=== PATIENT | female | born 1975 | race Caucasian/White ===

== ENCOUNTER 2024-07-15 04:13 | Emergency (ER) | payer OTHER, SELFPAY ==
[2024-07-15] VITALS (8 sets, daily range): BP systolic 97–134; BP diastolic 66–81; PULSE 62–107; RESP 20; TEMP 36.6; O2SAT 94–99; BMI 25.7
--- NOTE | 2024-07-15 04:48 | XRR_ITS ---
PROCEDURE INFORMATION: Exam: XR Chest Exam date and time: 07/15/2024 4:54 AM Age: 49 years old Clinical indication: Other: Syncope/vomiting; Patient HX: Syncope with vomiting. TECHNIQUE: Imaging protocol: Radiologic exam of the chest. Views: 1 view. COMPARISON: No relevant prior studies available. FINDINGS: Lungs: Unremarkable. No consolidation. Pleural spaces: Unremarkable. No pleural effusion. No pneumothorax. Heart/Mediastinum: Unremarkable. No cardiomegaly. Bones/joints: Unremarkable. XR/XR chest 1V portable [id number] IMPRESSION: No acute findings.
--- NOTE | 2024-07-15 05:08 | CTR_ITS ---
PROCEDURE INFORMATION: Exam: CT Head Without Contrast Exam date and time: 07/15/2024 5:24 AM Age: 49 years old Clinical indication: Pain; Syncope and collapse; Headache; Patient HX: Syncopal episode with SANCHEZ. ; Additional info: Syncope, headache TECHNIQUE: Imaging protocol: Computed tomography of the head without contrast. Radiation optimization: All CT scans at this facility use at least one of these dose optimization techniques: automated exposure control; mA and/or kV adjustment per patient size (includes targeted exams where dose is matched to clinical indication); or iterative reconstruction. COMPARISON: No relevant prior studies available. RADIATION DOSE METRICS: Total DLP (mGy-cm): 1017.18 FINDINGS: Brain: Normal. No hemorrhage. Unremarkable white matter. No mass effect. Cerebral ventricles: No ventriculomegaly. Paranasal sinuses: Visualized sinuses are unremarkable. No fluid levels. Mastoid air cells: Visualized mastoid air cells are well aerated. Bones: Unremarkable. No acute fracture. Soft tissues: Unremarkable. CT/CT head wo con* [id number] IMPRESSION: No acute intracranial abnormality.
--- NOTE | 2024-07-15 05:14 | ED_ITS ---
HPI - Nausea/Vomiting/Diarrhea 2 General: Chief complaint: Nausea/Vomiting/Diarrhea Stated complaint: n/v loc Time Seen by Provider: 07/15/24 04:53 History of Present Illness: 49-year-old female who had been nauseate d, sick at her stomach in bed. She got up to use the restroom, as she became more nauseated. She had a syncopal episode in the bathroom. states her eyes rolled back in her head. This happened twice. Each lasted about 30 seconds or so. She was stiff at 1 point. She was not overly confused afterward. She has recovered now. She was given nausea medication after beginning to vomit in the ambulance on the way here, and feels somewhat improved. Related Data Home Medications Medication Instructions Recorded Confirmed Tumeric Complex 1 cap PO DAILY 07/15/24 07/15/24 magnesium citrate 100 mg tablet 100 mg PO DAILY 07/15/24 07/15/24 [id number] fum 18 1 tab PO DAILY 07/15/24 07/15/24 mg-folic 600 mcg-vit K 80 mcg tablet (Multi For Her) Previous Rx's Medication Instructions Recorded ondansetron 4 mg disintegrating 4 mg PO Q6H PRN nausea and 07/15/24 tablet vomiting #14 tabs Physical Exam 2 Const: COMMON NORMALS: no acute distress GENERAL APPEARANCE: cooperative and ill appearing (Mildly); not frail appearing HENMT: COMMON NORMALS: normocephalic, atraumatic and Normal external nose present HEAD & SCALP: normocephalic and atraumatic FACE & SINUS: normal facial exam and face symmetric NOSE: Normal external nose present Eye: COMMON NORMALS: Equal, round and reactive pupils present and EOMs intact bilaterally PUPIL: Yes Equal, round and reactive pupils present Neck/C-Spine: GENERAL: Yes trachea midline Chest: CHEST: Yes Symmetrical chest wall rise Resp: COMMON NORMALS: normal respiratory effort, No retractions, No use of accessory muscles and clear to auscultation bilaterally AUSCULTATION: clear to auscultation bilaterally Cardio: COMMON NORMALS: regular rate and regular rhythm RATE: regular rate RHYTHM: regular rhythm GI: COMMON NORMALS: Normal to inspection, nondistended, normoactive bowel sounds present Extremity: COMMON NORMALS: no pedal edema Neuro: CAROLINE COMA SCALE: document GCS findings Caroline coma scale eye opening: Spontaneous Caroline coma scale verbal response: Orientated [place] coma scale motor response: Obey commands Caroline coma scale total score: 15 S ENSORY EXAM: Yes extremities (intact) Psych: COMMON NORMALS: speech normal SPEECH: Yes normal speech Skin: COMMON NORMALS: no rashes or lesions noted GENERAL SKIN EXAM: no rashes or lesions noted Course 2 Vital Signs: Vital signs: Vital Signs Temperature 97.8 F 07/15/24 04:28 Pulse Rate 62 07/15/24 13:25 Respiratory Rate 20 H 07/15/24 04:28 Blood Pressure 108/66 07/15/24 13:25 Pulse Oximetry 96 07/15/24 13:25 MDM - Nausea/Vomiting/Diarrhea Medical Decision Making Vitals been stable here. Hemoglobin is 13. White blood cell count is 11.8. Chest x-ray is negative. Head CT is negative. Lipase is normal. Liver enzymes are normal. Her belly is not overly tender. She will be allowed discharge. Likely vasovagal syncope from the nausea related to her stomach. She is to return for repeated episodes, or worsening symptoms otherwise. On notification of discharge, the patient began to get dizzy, and have nausea again. She is given medication for this with some improvement. Consideration was given to the possibility of posterior circulation stroke, given her dizziness. However, the patient's dizziness improved with medication, as that her nausea. She was able to walk in the ER without assistance, and felt as if she could go home. She was discharged at that point. She knows to return for any worsening symptoms. Lab Data 07/15/24 05:17 07/15/24 05:17 Radiology Impressions Chest X-Ray 07/15/24 04:48 IMPRESSION: No acute findings. Head CT 07/15/24 05:08 IMPRESSION: No acute intracranial abnormality. Laboratory Results WBC 11.80 10^3/uL (3.29-11.43) H 07/15/24 05:17 RBC 4.84 10^6/uL (3.85-5.65) 07/15/24 05:17 Hgb 13.70 g/dL (11.27-16.99) 07/15/24 05:17 Hct 42.2 % (36-47) 07/15/24 05:17 MCV 87.2 fl (85-98) 07/15/24 05:17 MCH 28.3 pg (27-33) 07/15/24 05:17 MCHC 32.5 g/dL (30-55) 07/15/24 05:17 RDW 13.0 % (12.1-15.1) 07/15/24 05:17 Plt Count 312 10^3/cmm (157-399) 07/15/24 05:17 MPV 9.9 fL (7.4-10.4) 07/15/24 05:17 Neut % (Auto) 88.7 % 07/15/24 05:17 Lymph % (Auto) 5.5 % 07/15/24 05:17 [place] % (Auto) 4.8 % 07/15/24 05:17 Eos % (Auto) 0.6 % 07/15/24 05:17 Baso % (Auto) 0.1 % 07/15/24 05:17 Neut # (Auto) 10.46 10^3/uL (1.8-7.7) H 07/15/24 05:17 Lymph # (Auto) 0.7 10^3/uL (0.8-4.8) L 07/15/24 05:17 [place] # (Auto) 0.6 10^3/uL (0.2-0.9) 07/15/24 05:17 Eos # (Auto) 0.1 10^3/uL (0.0-0.8) 07/15/24 05:17 Baso # (Auto) 0.0 10^3/uL (0.0-0.1) 07/15/24 05:17 Nucleated RBC % (auto) 0 % 07/15/24 05:17 Nucleated RBCs # 0.0 /100WBC 07/15/24 05:17 Sodium 140 mmol/L (136-145) 07/15/24 05:17 Potassium 4.4 mmol/L (3.5-5.1) 07/15/24 05:17 Chloride 105 mmol/L (98-107) 07/15/24 05:17 Carbon Dioxide 26 mmol/L (22-29) 07/15/24 05:17 Anion Gap 13.4 (5-19) 07/15/24 05:17 BUN 19 mg/dL (6-20) 07/15/24 05:17 Creatinine 0.8 mg/dL (0.5-0.9) 07/15/24 05:17 GFR Calculation 75.6 mL/min (90-130) L 07/15/24 05:17 Glucose 106 mg/dL (65-115) 07/15/24 05:17 Calculated Osmolality 293 mOsm/kg (285-295) 07/15/24 05:17 Calcium 8.2 mg/dL (8.5-10.5) L 07/15/24 05:17 Total Bilirubin 0.4 mg/dL (0.15-1.2) 07/15/24 05:17 AST 24 U/L (0-32) 07/15/24 05:17 ALT 30 U/L (0-33) 07/15/24 05:17 Alkaline Phosphatase 58 U/L (35-105) 07/15/24 05:17 Total Protein 6.5 g/dL (6.6-8.7) L 07/15/24 05:17 Albumin 4.1 g/dL (3.5-5.2) 07/15/24 05:17 Globulin 2.4 g/dL (1.3-4.6) 07/15/24 05:17 Lipase 24 U/L (13-60) 07/15/24 05:17 Urine Color Yellow (Yellow) 07/15/24 08:37 Urine Appearance Clear (CLEAR) 07/15/24 08:37 Urine pH >=9.0 (5-7) A 07/15/24 08:37 Ur Specific [place] 1.021 (1.005-1.030) 07/15/24 08:37 Urine Protein Trace (Negative) A 07/15/24 08:37 Urine Glucose (UA) Negative (Normal) 07/15/24 08:37 Urine Ketones Negative (Negative) 07/15/24 08:37 Urine Blood Negative (Negative) 07/15/24 08:37 Urine Nitrate Negative (Negative) 07/15/24 08:37 Urine Bilirubin Negative (Negative) 07/15/24 08:37 Urine Urobilinogen 1.0 mg/dL (Negative) 07/15/24 08:37 Ur Leukocyte Esterase Negative (Negative) 07/15/24 08:37 Urine RBC 6-10 /hpf (0-2) 07/15/24 08:37 Urine WBC 0-5 /hpf (0-5) 07/15/24 08:37 Ur Squamous Epith Cells 0-5 /hpf (0-5) 07/15/24 08:37 Amorphous Sediment Not Reportable 07/15/24 08:37 Urine Bacteria None seen /hpf (NONE) 07/15/24 08:37 Hyaline Casts 2.05 /lpf 07/15/24 08:37 All radiology interpretation(s) finalized by discharge Discharge Plan Discharge Patient Disposition: Home Clinical Impression: Vasovagal syncope Condition: Stable Prescriptions: New ondansetron 4 mg tablet,disintegrating 4 mg PO Q6H PRN (Reason: nausea and vomiting) Qty: 14 0RF No Action magnesium citrate 100 mg Tablet 100 mg PO DAILY Multi For Her 18 mg iron-600 mcg-80 mcg Tablet 1 tab PO DAILY Tumeric Complex 500 mg capsule 1 cap PO DAILY Discharge Orders: Discharge ED (Routine); Ordered 07/15/24 Ordered By: Abby Gutiérrez Patient Instructions: Syncope (ED), Opioid Safety, Pain Management, Vomiting - Adult Activity Restrictions/Additional Instructions: Follow a liquid diet for the next 24 hours. Take nausea medication every 4 hours while awake for the first 24 hours whether you feel nauseated or not, then as needed following that. Return for worsening nausea, continued vomiting despite treatment, repeated episodes of syncope or passing out, other concerning symptoms. See your doctor early this week. Call tomorrow for an appointment. Coding Level of Care Code ED [employer] Executive Assistant for Fred Weston
[2024-07-15 05:23] LABS: Basophils % 0.1 %; Eosinophils # 0.1 10^3/uL (0.0-0.8); Eosinophils % 0.6 %; Hematocrit 42.2 % (36-47); Lymphocytes # 0.7 10^3/uL (0.8-4.8); Lymphocytes % 5.5 %; Mean Corpuscular HGB Conc 32.5 g/dL (30-55); Mean Corpuscular Hemoglobin 28.3 pg (27-33); Mean Corpuscular Volume 87.2 fl (85-98); Mean Platelet Volume 9.9 fL (7.4-10.4); Monocytes # 0.6 10^3/uL (0.2-0.9); Monocytes % 4.8 %; Neutrophils # 10.46 10^3/uL (1.8-7.7); Neutrophils % 88.7 %; Nucleated Red Blood Cells % 0 %; Platelet Count 312 10^3/cmm (157-399); Red Blood Count 4.84 10^6/uL (3.85-5.65)
[2024-07-15 05:41] LABS: Alanine Aminotransferase 30 U/L (0-33); Albumin Level 4.1 g/dL (3.5-5.2); Alkaline Phosphatase 58 U/L (35-105); Anion Gap 13.4 (5-19); Aspartate Amino Transferase 24 U/L (0-32); Blood Urea Nitrogen 19 mg/dL (6-20); Calcium 8.2 mg/dL (8.5-10.5); Carbon Dioxide 26 mmol/L (22-29); Chloride 105 mmol/L (98-107); Creatinine Clr Calc Pharmacy 81.8528; Globulin 2.4 g/dL (1.3-4.6); Glomerular Filtration Rate 75.6 mL/min (90-130); Glucose 106 mg/dL (65-115); Lipase 24 U/L (13-60); Osmolality Calculated 293 mOsm/kg (285-295); Potassium 4.4 mmol/L (3.5-5.1); Sodium 140 mmol/L (136-145); Total Bilirubin 0.4 mg/dL (0.15-1.2); Total Protein 6.5 g/dL (6.6-8.7)
[2024-07-15] MEDS: ondansetron 2 mg/ML SDV 2 mL 4 MG IVP (06:42)
[2024-07-15] MEDS: LORazepam 2 mg/mL INJ 1 mL 1 MG IVP (06:42)
[2024-07-15 08:48] LABS: Bilirubin Urine Negative (Negative); Blood Urine Negative (Negative); Glucose Urine UA Negative (Normal); Ketones Urine Negative (Negative); Leukocyte Esterase Urine Negative (Negative); Nitrate Urine Negative (Negative); Protein Urine Trace (Negative); Specific Gravity, Urine 1.021 (1.005-1.030); Urine Appearance Clear (CLEAR); Urine Color Yellow (Yellow); pH Urine >=9.0 (5-7)
[2024-07-15 08:53] LABS: Add Urine Microscopic? YES; Bacteria Urine None Seen /hpf; Hyaline Casts Urine 2.05 /lpf; Squamous Epithelial Cell Urine 0-5 /hpf (0-5); WBC Urine 0-5 /hpf (0-5)
== END 2024-07-15 13:27 | disposition home or self-care (01) ==
PROVIDERS: Emergency Medicine; Emergency Provider Emergency Medicine
DX: R55 Syncope and collapse (principal)
CPT/HCPCS: 36415; 70450; 71045; 80053; 81001; 83690; 85025; 96374; 96375; 99285; J2060; J2405